=== PATIENT | male | born 1990 | race Two or more races ===

== ENCOUNTER 2024-09-07 12:54 | Emergency (ER) | payer MEDICAID ==
[~2024-09-07] VITALS: Ht 175.3 cm; Wt 143.3 kg
[2024-09-07 13:10] VITALS: TEMP 98
[2024-09-07 13:22] LABS: APPEARANCE,URINE CLEAR (CLEAR); BLOOD, URINE Trace-lysed Ery/uL (NEGATIVE); LEUKOCYTE ESTERASE ,URINE Negative (NEGATIVE); UGLUCOSE >=1000 mg/dL (NEGATIVE)
[2024-09-07 13:23] LABS: NITRITE, URINE NEGATIVE (NEGATIVE)
[2024-09-07] MEDS ORDERED: CLOT15CR35 TP (13:28)
[2024-09-07] MEDS ORDERED: CEPH-570 PO (13:28)
[2024-09-07] MEDS ORDERED: METF-440 PO (13:28)
[2024-09-07 13:31] LABS: ADD URINE CULTURE NO; SQUAMOUS EPITHELIAL CELL,UR Moderate /HPF (None Seen)
[2024-09-07 13:39] VITALS: BP 136/86; O2SAT 97
== END 2024-09-07 13:39 | disposition home or self-care (01) ==
LOC: ER 13:01
DX: L03.019 Cellulitis of unspecified finger (principal); E11.9 Type 2 diabetes mellitus without complications; N34.2 Other urethritis; Z79.84 Long term (current) use of oral hypoglycemic drugs; Z79.899 Other long term (current) drug therapy
CPT/HCPCS: 81001; 82962-TC